=== PATIENT | female | born 1985 | race Hispanic/Latino ===

== ENCOUNTER 2020-01-24 23:09 | Emergency (ER) | payer SELFPAY ==
--- NOTE | ~2020-01-24 | XR_ITS ---
XR chest 2V DATE: 01/25/2020 00:16 INDICATION: Hemoptysis TECHNIQUE: PA and lateral views COMPARISON: None FINDINGS: Normal heart size. No hilar or mediastinal enlargement. No pulmonary infiltrate or consolid ation, pleural effusion or pulmonary vascular congestion or pneumothorax. Mild thoracic scoliosis. IMPRESSION: No active cardiopulmonary disease Reviewed, dictated and finalized at location [facility].
--- NOTE | ~2020-01-24 | CT_ITS ---
EXAMINATION: CT brain wo con DATE: 01/25/2020 00:12 INDICATION: Headache, frontal area. Dizziness. Nausea. TECHNIQUE: Computed tomography (CT) of the head was performed without intravenous contrast. The mA wa s adjusted according to patient size. Iterative reconstruction technique was employed. Exam dose: 60 5.33 mGy-cm total exam DLP. COMPARISON: None FINDINGS: No intracranial mass lesion or hemorrhage or cerebrovascular accident is evident. No midlin e shift or mass effect. Normal ventricular size. Normal maloney-white matter differentiation. No subdura l or epidural hematoma. The orbital contents are unremarkable. The mastoid air cells and included paranasal sinuses are normally developed and aerated. No fracture or bone destruction of the cranial vault. IMPRESSION: No significant abnormality Reviewed, dictated and finalized at [facility]. Reviewed, dictated and finalized at location [facility]. IMPRESSION: No significant abnormality
[2020-01-24 23:17] VITALS: BP 131/78; PULSE 79; RESP 17; TEMP 36.8; O2SAT 100
--- NOTE | 2020-01-24 23:27 | ED.NAVMDI ---
HPI - Nausea/Vomiting/Diarrhea General Chief complaint: Dizziness Stated complaint: dizzy Time Seen by Provider: 01/24/20 23:17 Source: patient and RN notes reviewed Mode of arrival: ambulatory Limitations: no limitations History of Present Illness HPI Narrative: Pt is a 34 y/o female who presents to the ED with c/o nausea and vomiting starting 2 weeks ago. She notes that she had a control device implanted in her arm in November. Pt states that she believes she is not currently . She notes that she has had a frontal headache, nausea, and vomiting for the past 2 weeks. Pt states that she noticed blood in her vomit for a short period of time, but denies any hematemesis currently. She notes that her symptoms are aggravated with movement of her head. Pt denies any fever, ABD pain, chest pain, or numbness/tingling. She notes that she took Ibuprofen for her symptoms around 9 PM this evening. MD elicited complaint: nausea and vomiting Onset (ago): week(s) (2) Associated nausea: Yes Associated abdominal pain: No Exacerbating factors: movement (head movement) Associated symptoms: headaches (frontal) and other (hematemesis (resolved)) Treatment prior to arrival: NSAIDs (Ibuprofen) Related Data Allergies Allergy/AdvReac Type Severity Reaction Status Date / Time No Known Allergies Allergy Verified 01/24/20 23:30 Review of Systems Review of Systems: Narrative: CONSTITUTIONAL: Denies fever, chills, or sweats. CARDIOVASCULAR: Denies chest pain, palpitations, or edema. GASTROINTESTINAL: Denies abdominal pain or diarrhea. Reports nausea, vomiting, and hematemesis (resolved). GENITOURINARY: Denies dysuria or hematuria. NEUROLOGIC: Reports frontal headache. Denies numbness/tingling or weakness. All systems reviewed & are unremarkable except as noted in HPI and below PMFSH Past Medical History Medical History Healthy female adult Surgical History Surgical History No significant past surgical history Social History Social History Smoking status: Never smoker Exam Narrative: Exam Narrative: GENERAL: Well-appearing, well-nourished, and in no acute distress. HEAD: Normocephalic, atraumatic. EYES: PERRLA and EOMI. ENT: Nares clear, no rhinorrhea or epistaxis. Mucous membranes moist. NECK: Supple. CHEST: Clear to auscultation. No respiratory distress. HEART: Regular rate and rhythm. No murmur heard. Normal peripheral pulses. ABDOMEN: Soft, nontender, nondistended, normal active bowel sounds. EXTREMITIES: Normal range of motion. No edema. SKIN: Warm, dry, no rash. NEURO: Finger to nose intact bilaterally. EOMs intact without nystagmus. No facial droop/asymmetry noted bilaterally. Grimace intact. Intact sensation in face. Hearing intact bilaterally. Shoulder shrug intact. Strength 5/5 bilateral upper extremities. Strength 5/5 bilateral lower extremities. Reflexes 2+ patellar. Heel to go intact bilaterally. Ambulatory with a narrow base, steady gait, no ataxia. Course Course Emergency Course: Patient evaluated in the emergency department for headache. At the time of assessment, ABC's intact and vital signs stable. Neurological examination normal. Given symptoms, concern for the above differential diagnosis, however symptoms do seem most consistent with migraine versus tension headache given intermittent nature and quality of the pain over the past 2 weeks and surrounding the temples. Also considered intracranial abnormality, but CT scan without acute intracranial abnormality. IV access was obtained and labs were drawn. Patient was given IV migraine cocktail with improvement in their symptoms. Laboratory results are unremarkable. Patient is not . Patient was reassessed and feels improved. Headache resolved. Repeat neurological examination continues to be normal. Patient able to tolerate oral int
--- NOTE | 2020-01-24 23:46 | ECG_ITS ---
Measurements Intervals [place] Rate: 83 P: -15 CA: 105 QRS: 67 QRSD: 84 T: 49 QT: 358 QTc: 421 Interpretive Statements SINUS RHYTHM WITH SHORT CA INTERVAL BORDERLINE ECG Electronically Signed On 01-25-2020 6:59:41 CDT by Don Gonzalez D.O.
[2020-01-24] MEDS: SODIUM CHLORIDE 0.9% IV 1,000 ML 999 ML IV CONT (23:48)
[2020-01-24] MEDS: MAGNESIUM SULF 2 GM/WATER 50ML 2 GM/50 ML BAG IVPB (23:49)
[2020-01-24] MEDS: ONDANSETRON INJ 4 MG/2 ML VIAL IV PUSH (23:49)
[2020-01-24 23:52] LABS: Basophils Percent Auto 0.5 % (0.2-1.2); Eosinophils Absolute Auto 0.1 K/mm3 (0-0.3); Eosinophils Percent Auto 1.6 % (0-4.4); Hemoglobin 12.9 g/dL (12.0-15.0); Immature Granulocyte Absolute 0.01 K/mm3 (0.00-0.031); Immature Granulocyte Percent A 0.2 % (0-0.5); Lymphocytes Absolute Auto 2.87 K/mm3 (0.9-3.2); Lymphocytes Percent Auto 45.1 % (18.3-44.2); Mean Corpuscular HGB Conc 33.1 g/dl (32-36); Mean Corpuscular Hemoglobin 30.6 pg (26-34); Mean Corpuscular Volume 92.6 fl (80-100); Mean Platelet Volume 11.3 fl (7.4-10.4); Monocytes Absolute Auto 0.5 K/mm3 (0.1-0.6); Monocytes Percent Auto 8.3 % (2.6-8.5); Neutrophils Absolute Auto 2.8 K/mm3 (1.3-6.7); Neutrophils Percent Auto 44.3 % (45.5-73.1); Platelet Count Result 167 k/mm3 (150-375); Red Blood Count 4.21 M/mm3 (4.2-5.4); Red Cell Distribution Width 12.5 % (11.5-14.5); White Blood Count 6.4 K/mm3 (4.5-10.0)
--- NOTE | 2020-01-25 | PC.NURSE ---
Patient taken to radiology.
[2020-01-25 00:03] LABS: Blood Urea Nitrogen 15 mg/dL (7-17); Calcium 9.5 mg/dL (8.4-10.2); Carbon Dioxide 25 mmol/L (22-30); Chloride 106 mmol/L (98-107); Estimated CRCL calculation 89 ml/min; Estimated Glomerular Filt Rate > 60; Glucose 90 mg/dL (65-105); Potassium 3.8 mmol/L (3.4-5.0); Sodium 138 mmol/L (137-145)
[2020-01-25 01:38] VITALS: BP 105/61; PULSE 86; RESP 18; TEMP 36.7; O2SAT 100
== END 2020-01-25 01:41 | disposition home or self-care (01) ==
PROVIDERS: Emergency Provider Emergency Medicine
DX: G43.009 Migraine without aura, not intractable, without status migrainosus (principal)
CPT/HCPCS: 36415; 70450; 71046; 80048; 85025; 93005; 96365; 96368; 96375; 99284; J0131; J1100; J1200; J2405; J3475; J7030

== ENCOUNTER 2022-04-25 22:19 | Emergency (ER) | payer SELFPAY ==
--- NOTE | ~2022-04-25 | US_ITS ---
EXAMINATION: US OB <= 14 weeks fetus DATE: 04/26/2022 01:06 INDICATION: Abdomen pain and spotting. TECHNIQUE: Real-time transabdominal and transvaginal obstetric ultrasound. FINDINGS: No prior studies for comparison. The uterus measures 9.3 x 7.4 x 5.7 cm. There is an intrauterine gestational sac, with pole zach ntified. The crown rump length measures 1.25 cm, which correlates with a estimated gestational age o f 12/10/2022. heart tones are identified measuring 150 bpm. Is a subchorionic hemorrhage measu ring 3.2 x 2.8 x 1 cm. There is a complicated cyst of the right ovary measuring 2.1 cm, consistent wi th corpus luteal cyst. IMPRESSION: 1. SL IUP with an EGA of 7 weeks, 3 days (EDC by current ultrasound of 12/10/2022). 2: Moderate size subchorionic hemorrhage. Reviewed, dictated and finalized at location A. IMPRESSION: 1. SL IUP with an EGA of 7 weeks, 3 days (EDC by current ultrasound of 3). 2: Moderate size subchorionic hemorrhage.
[2022-04-25 22:22] VITALS: BP 125/69; PULSE 83; RESP 18; TEMP 36.3; O2SAT 100
--- NOTE | 2022-04-25 23:03 | ED.ABDPAIN ---
HPI - Abdominal Pain General Chief Complaint: Abdominal Pain Stated Complaint: abdominal pain x 1 week, 3 weeks Time Seen by Provider: 04/25/22 22:29 History of Present Illness HPI narrative: 36-year-old female presents the emergency room for evaluation of periumbilical pain for 1 week. Patient also states that she has been intermittently nauseated and has thrown up once. Patient reports being 6 weeks . G5, P4. Patient states on 2 occasions she has noticed spotting, describing the blood is bright red. Otherwise denies any other ongoing vaginal bleeding. Denies dysuria. No abdominal surgeries. Related Data Allergies Allergy/AdvReac Type Severity Reaction Status Date / Time No Known Allergies Allergy Verified 01/24/20 23:30 Review of Systems Review of Systems: CONSTITUTIONAL: Denies fever, chills, or sweats. EYES: Denies visual changes, redness, or discharge. ENT: Denies rhinorrhea, congestion, sore throat, or otalgia. CARDIOVASCULAR: Denies chest pain, palpitations, or edema. RESPIRATORY: Denies cough or dyspnea. GASTROINTESTINAL: Abdominal pain, nausea GENITOURINARY: Denies dysuria or hematuria. SKIN: Denies rash or itching. MUSCULOSKELETAL: Denies back pain, joint pain, or myalgia. NEUROLOGIC: Denies headache, numbness, dizziness, or weakness. PSYCHIATRIC: Denies anxiety or depression. [facility] Past Medical History Medical History (Updated 04/26/22 @ 02:02 by Arcadio Alaniz APRN) Healthy female adult Surgical History Surgical History No significant past surgical history Social History Social History Smoking status: Never smoker Exam Narrative: GENERAL: Well-appearing, well-nourished, and in no acute distress. HEAD: Normocephalic, atraumatic. EYES: PERRLA and EOMI. CHEST: Clear to auscultation. No respiratory distress. No wheezes rales or rhonchi HEART: Regular rate and rhythm. No murmur heard. Normal peripheral pulses. ABDOMEN: Soft, periumbilical and lower abdominal tenderness, nondistended, normal active bowel sounds. EXTREMITIES: Normal range of motion. No edema. SKIN: Warm, dry, no rash. NEURO: No focal deficits. Alert and oriented x3. PSYCH: Normal mood and affect. Course Vital Signs Vital signs: Vital Signs Temperature 36.3 C L 04/25/22 22:22 Pulse Rate 83 04/25/22 22:22 Respiratory Rate 18 04/25/22 22:22 Blood Pressure 125/69 04/25/22 22:22 Pulse Oximetry 100 04/25/22 22:22 Oxygen Delivery Room Air 04/25/22 22:22 Temperature 36.3 C L 04/25/22 22:22 Pulse Rate 83 04/25/22 22:22 Respiratory Rate 18 04/25/22 22:22 Blood Pressure 125/69 04/25/22 22:22 Pulse Oximetry 100 04/25/22 22:22 Oxygen Delivery Room Air 04/25/22 22:22 MDM - Abdominal Pain MDM Narrative Medical decision making narrative: 36-year-old female presents with vaginal bleeding in the first trimester. Pelvic ultrasound showed a single live intrauterine gestation. No heart tones of 150. There was some small fluid collection adjacent to the gestational sac which may represent a subchorionic hemorrhage. Results were discussed with the patient and was follow-up with INFORMATION DIRECTOR. Urinalysis shows a early signs of a urinary tract infection so we will treat with Macrobid. Lab Data Labs: UCG Bedside Result Positive Reference Range: Negative Imaging Data Radiologist's impression: Single live intrauterine gestation. cardiovascular activity was present at 150 bpm. There is a 2.8 x 3.2 x 1.0 cm fluid collection adjacent to the gestational sac which may represent a subchorionic hemorrhage. There is a 2 cm complex cyst in the maternal right ovary which may represent a corpus luteum cyst. Discharge Plan Discharge Clinical Impression: Vaginal bleeding affecting early , U
[2022-04-25] MEDS: ONDANSETRON INJ 4 MG/2 ML VIAL IV PUSH (23:07)
[2022-04-25 23:09] LABS: Appearance Urine Clear (Clear); Bilirubin Urine Negative (Negative); Blood Urine 1+ (Negative); Color Urine Yellow (Yellow); Glucose Urine UA Negative (Negative); Ketones Urine 3+ mg/dL (Negative); Leukocyte Esterase Ur 1+ LEU/UL (Negative); Nitrate Urine Negative (Negative); Protein Urine Negative (Negative); pH Urine 6.5 (5.0-9.0)
[2022-04-25 23:10] LABS: Bacteria Urine Trace /hpf; Mucus Urine Rare /lpf; Squamous Epithelial Cell Urine Few /hpf (Few)
[2022-04-25 23:14] LABS: Basophils Percent Auto 0.3 % (0.2-1.2); Eosinophils Absolute Auto 0.1 K/mm3 (0-0.3); Eosinophils Percent Auto 0.8 % (0-4.4); Hematocrit 39.1 % (37.0-47.0); Immature Granulocyte Absolute 0.01 K/mm3 (0.00-0.031); Immature Granulocyte Percent A 0.2 % (0-0.5); Lymphocytes Absolute Auto 1.92 K/mm3 (0.9-3.2); Lymphocytes Percent Auto 29.7 % (18.3-44.2); Mean Corpuscular HGB Conc 33.2 g/dl (32-36); Mean Corpuscular Hemoglobin 31.4 pg (26-34); Mean Corpuscular Volume 94.4 fl (80-100); Monocytes Absolute Auto 0.5 K/mm3 (0.1-0.6); Monocytes Percent Auto 7.7 % (2.6-8.5); Neutrophils Percent Auto 61.3 % (45.5-73.1); Platelet Count Result 179 k/mm3 (150-375); Red Blood Count 4.14 M/mm3 (4.2-5.4); Red Cell Distribution Width 12.9 % (11.5-14.5); White Blood Count 6.5 K/mm3 (4.5-10.0)
[2022-04-25 23:20] LABS: Add Urine Microscopic? YES
[2022-04-25 23:25] LABS: Alanine Aminotransferase 13 U/L (6-35); Albumin Level 4.1 g/dL (3.5-5.1); Alkaline Phosphatase 45 U/L (38-126); Anion Gap 6 mmol/L (8-16); Aspartate Amino Transferase 22 U/L (14-36); Bilirubin,Total 0.6 mg/dL (0.2-1.3); Blood Urea Nitrogen 8 mg/dL (7-17); Calcium 8.8 mg/dL (8.4-10.2); Carbon Dioxide 22 mmol/L (22-30); Chloride 106 mmol/L (98-107); Estimated CRCL calculation 104 ml/min; Estimated Glomerular Filt Rate > 60; Glucose 89 mg/dL (65-110); Lipase 59 U/L (23-300); Potassium 3.6 mmol/L (3.4-5.0); Sodium 134 mmol/L (137-145)
[2022-04-26] MEDS: NITROFURANTOIN MONOHYD MACROCR 100 MG CAP PO (02:21)
[2022-04-26 03:50] VITALS: BP 101/62; PULSE 79; RESP 20; O2SAT 100
== END 2022-04-26 03:53 | disposition home or self-care (01) ==
PROVIDERS: Emergency Provider Nurse Practitioner Family
DX: O23.91 Unspecified genitourinary tract infection in pregnancy, first trimester (principal); O20.9 Hemorrhage in early pregnancy, unspecified; Z3A.01 Less than 8 weeks gestation of pregnancy
CPT/HCPCS: 36415; 76801; 80053; 81001; 81025; 83690; 84702; 85025; 96374; 99284; A9270; J2405